=== PATIENT | female | born 1950 | race Caucasian/White ===

== ENCOUNTER 2016-11-05 21:42 | Inpatient (IN) | payer OTHER ==
--- NOTE | ~2016-11-05 | PA ---
Unit #: [id number] #: [id number] Patient: LYNN MARCOS [id number] [facility] [address] [place] [address] [id number] I MR#: [id number] NAME: LYNN MARCOS ROOM: P171 Age: 66 Sex: F Admission Date: 11/05/2016 : 1950 Date of Assessment: 11/06/2016 Attending Physician: Dipak Pickett M.D. Admitting Physician: Dipak Pickett M.D. Primary Care Physician: Generic Doctor Not In System PSYCHIATRIC ASSESSMENT DATE OF SERVICE 11/06/2016. IDENTIFYING DATA Ms. Marcos is a 66-year-old, , white female, who is a resident of [place], [place], and was self-referred to the hospital. CHIEF COMPLAINT "I have been having panic attacks for the past few weeks." HISTORY OF PRESENT ILLNESS Ms. Marcos is a 66-year-old white female, who was self-referred to the hospital. Upon presentation, she stated that she has been having panic attacks for the past few weeks and she does not know what causes it, but is scared so to the point that she has thought about harming herself to make it stop and stated that she has had thoughts about taking pills or turning on her gas to kill herself to make it all stop. Her friend stated that the patient has been suffering from these feelings for a while and she lives alone and she is concerned about her safety. The patient was seen to be a danger to self and as such, a recommendation for inpatient level of care was made. SUBSTANCE ABUSE HISTORY The patient denies any alcohol or drug abuse. PAST PSYCHIATRIC HISTORY The patient has had a history of multiple inpatient psychiatric hospitalizations as she has been to [facility], [facility], at [facility], and [facility] and other facilities and has had outpatient treatment with long history of mental illness, and review of the medical records indicate that currently she is seeing a psychiatrist, but is not taking any psychotropic medications. PAST MEDICAL HISTORY The patient's medical history is significant for hypertension. ALLERGIES Wellbutrin. PERSONAL AND SOCIAL HISTORY A 66-year-old white female, who reports that she is single, unemployed, , and lives alone and has poor social support system. Unit #: [id number] #: [id number] Patient: LYNN MARCOS MENTAL STATUS EXAMINATION An elderly white female, who was casually dressed with fair personal hygiene, appears to be in no acute distress or discomfort. She was awake and alert on interaction with intact orientation to time, place, and person. Her mood was anxious and depressed with a congruent affect. Her speech was slow and goal directed. She reports having suicidal ideations, but denies any homicidal ideations and also denies any auditory or visual hallucinations. Her insight and judgment remain significantly impaired. DIAGNOSTIC IMPRESSION Psychiatric: Major depressive disorder, recurrent, moderate, without psychotic features and generalized anxiety disorder. Medical: Hypertension. Stressors: Moderate psychosocial stressors. TREATMENT PLAN 1. The patient has presented with a history of mood disorder and substance abuse and has been decompensating and will need inpatient hospitalization for safety and stabilization. We will start her back on her home medications and we will adjust the medications and monitor response. 2. Supportive therapy was provided to the patient. 3. Safe, structured, and nourishing environment will be provided. ESTIMATED LENGTH OF STAY 4 to 5 days. ABILITY TO HELP SELF Limited. WILLINGNESS TO HELP SELF The patient appears to be willing to help self. STRENGTHS 1. Communicative. 2. Cooperative. PROBLEMS 1. Chronic dysphoric symptoms. 2. Poor social support system. DISCHARGE CRITERIA This will be contingent upon the patient's ability to show resolution of her depression and anxiety as well as her ability to stay safe to herself, particularly after discharge from the hospital. Dictated by... Karis Ford/sean TD: 11/06/2016 14:55 JOB #: [id number] Unit #: [id number] #: [id number] Patient: LYNN MARCOS PSYCHIATRIC ASSESSMENT X Dipak Pickett MD PSYCHIATRIC ASSESSMENT
--- NOTE | ~2016-11-05 | PN ---
Unit #: [id number] #: [id number] Patient: LYNN MARCOS [id number] [facility] [address] [place] [address] [id number] MR#: [id number] NAME: LYNN MARCOS. ROOM: P171 Age: 66 Sex: F Admission Date: 11/05/2016 : 1950 Attending Physician: Dipak Pickett M.D. Admitting Physician: Dipak Pickett M.D. Primary Care Physician: Generic Doctor Not In System [facility] PROGRESS NOTES DATE OF SERVICE 11/09/2016 DISCUSSION Ms. Marcos is a 66-year-old white female who was seen today. Chart was reviewed and case was discussed with the staff. She has been anxious, withdrawn, was sitting on her bed in a bra and was seen to be somewhat disorganized and unable to carry on much conversation, and exhibiting some cognitive impairment. Meanwhile, reports not feeling good and has been complaining of anxiety and depressive symptoms. MENTAL STATUS EXAMINATION An elderly white female who is casually dressed with fair personal hygiene, appears to be in no acute distress or discomfort. The patient was awake and alert with impaired attention and concentration. Her mood is anxious with congruent affect. Her speech is slow and restricted in content. Her thought processes were disorganized with some looseness of associations. Her insight and judgment remain significantly impaired. TREATMENT PLAN 1. We will continue her on her current medications and treatment protocol. We will monitor her response and make further adjustments as needed. 2. We will continue to follow up. Dictated by... Karis Ford/greg TD: 11/09/2016 12:48 JOB #: [id number] Unit #: [id number] #: [id number] Patient: LYNN MARCOS [facility] PROGRESS NOTES X Dipak Pickett MD PROGRESS NOTE
--- NOTE | ~2016-11-05 | PN ---
Unit #: [id number] #: [id number] Patient: LYNN MARCOS [id number] [facility] [address] [place] [address] [id number] I MR#: [id number] NAME: LYNN MARCOS ROOM: P171 Age: 66 Sex: F Admission Date: 11/05/2016 : 1950 Attending Physician: Dipak Pickett M.D. Admitting Physician: Dipak Pickett M.D. Primary Care Physician: Generic Doctor Not In System [facility] PROGRESS NOTES DATE OF SERVICE: 11/13/2016 SUBJECTIVE Ms. Marcos is a 66-year-old white female, who was seen today and chart was reviewed, and case was discussed with the staff. She has been anxious, withdrawn, rather seclusive to herself and has been exhibiting some depressive symptoms. Meanwhile, she has been taking the medications and tolerating them fairly well with no reported side effects. MENTAL STATUS EXAMINATION An elderly white female, who was casually dressed with fair personal hygiene, appears to be in no acute distress or discomfort. She was awake and alert on interaction with intact orientation. Her mood was anxious and depressed with a congruent affect. She denies any suicidal or homicidal ideations. Her insight and judgment remain slightly impaired. TREATMENT PLAN 1. We will continue her on her current treatment protocol. We will monitor her response to the medications and make further adjustments as needed. 2. We will continue to follow up. Dictated by... Karis Ford/sean TD: 11/14/2016 06:22 JOB #: [id number] [employer] PROGRESS NOTES X Dipak Pickett MD PROGRESS NOTE
--- NOTE | ~2016-11-05 | HP ---
Unit #: [id number] #: [id number] Patient: LYNN MARCOS [id number] [place] [address] [id number] I MR#: [id number] NAME: LYNN MARCOS. ROOM: P171 Age: 66 Sex: F Admission Date: 11/05/2016 : 1950 Attending Physician: Dipak Pickett M.D. Admitting Physician: Dipak Pickett M.D. Primary Care Physician: Generic Doctor Not In System HISTORY AND PHYSICAL HISTORY OF PRESENT ILLNESS The patient is a 66-year-old female admitted to [facility] on 11/05/2016 for suicidal ideation. PAST MEDICAL HISTORY 1. Hypertension. 2. Nicotine dependence. PAST SURGICAL HISTORY 1. Cardiac catheterization. 2. Hernia. 3. Colon surgery. SOCIAL HISTORY The patient is retired. She lives alone. She smokes one pack of cigarettes daily. Denies alcohol and drug use. FAMILY HISTORY Noncontributory. ALLERGIES Wellbutrin. CURRENT MEDICATIONS 1. Atenolol. 2. Ibuprofen. 3. Benadryl. 4. Eyedrops. 5. Aspirin. 6. Tylenol. REVIEW OF SYSTEMS CONSTITUTIONAL: No fever or chills. HEENT: Denies any sore throat, ear pain or runny nose. CARDIOVASCULAR: Denies chest pain, irregular heart rhythm or palpitations. CHEST: Denies shortness of breath or cough. No hemoptysis. GASTROINTESTINAL: Denies nausea, vomiting, diarrhea or chronic constipation. ENDOCRINE: Denies history of increased thirst or urination. No recent significant weight loss or gain. GENITOURINARY: Denies dysuria, frequency, or hematuria. SKIN: Denies any rashes. HEMATOLOGIC: Denies history of increased bleeding or bruising. Unit #: [id number] #: [id number] Patient: LYNN MARCOS MUSCULOSKELETAL: Denies any hot, swollen joints. No generalized muscle pain. NEUROLOGIC: Denies problems with vision or speech. No frequent, severe headaches. No numbness, tingling or weakness in any extremities. Denies loss of bladder or bowel control. PHYSICAL EXAMINATION GENERAL: Awake, alert and oriented, in no acute distress. VITAL SIGNS: Temperature 98.2, heart rate 74, respiratory rate 18, blood pressure 130/69, height 5'3". WEIGHT: 125 pounds. SKIN: Warm and dry without rash or lesion. HEENT: Normocephalic. TMs not viewed. Oral and nasal passages clear. Conjunctivae clear. PERRLA. EOMs intact. NECK: Supple without lymphadenopathy or thyromegaly. HEART: Regular rate and rhythm without murmur. LUNGS: Clear. ABDOMEN: Soft, nontender. : Not done. EXTREMITIES: No evidence of cyanosis, clubbing or edema. Moves all without focal deficit. NEUROLOGICAL: Grossly within normal limits. Cranial Nerves: II: Visual smith are intact. III, IV AND : Extraocular movements are intact. Pupils are equal, round and reactive to light. V: Facial sensation is grossly normal. VII: Facial movements and expression are normal. VIII: Auditory acuity grossly intact. IX, X: Uvula is midline. Phonation is normal. XI: Patient shrugs shoulders and turns head normally. XII: Tongue protrudes in the midline. Sensory and Motor Function: Sensory and motor sensation is grossly normal. Motor: moves all extremities well. ASSESSMENT 1. Psychiatric admission. 2. Hypertension. 3. Nicotine dependence. RECOMMENDATION Psychiatric: Per psychiatrist. Medical: No contraindications for participating in facility activities. MEDICAL PROGNOSIS Good. MEDICATION CONDITION Stable. Dictated by... Karoline Kaur/elida TD: 11/07/2016 08:07 JOB #: [id number] Unit #: [id number] #: [id number] Patient: LYNN MARCOS HISTORY AND PHYSICAL X JONATHAN RAYO APRN HISTORY AND PHYSICAL
--- NOTE | ~2016-11-05 | PN ---
Unit #: [id number] #: [id number] Patient: LYNN MARCOS [id number] [facility] [address] [place] [address] [id number] I MR#: [id number] NAME: LYNN MARCOS. ROOM: P171 Age: 66 Sex: F Admission Date: 11/05/2016 : 1950 Attending Physician: Dipak Pickett M.D. Admitting Physician: Dipak Pickett M.D. Primary Care Physician: Generic Doctor Not In System [facility] PROGRESS NOTES DATE 11/12/2016 DISCUSSION Ms. Marcos is a 66-year-old white female who was seen today and chart was reviewed and case was discussed with the staff. She remains anxious, withdrawn and rather seclusive to herself. Meanwhile, she has been cooperative with treatment recommendations as she has been taking the medications and tolerating them fairly well with no reported side effects. MENTAL STATUS EXAMINATION An elderly white female who was casually dressed with fair personal hygiene, appears to be in no acute distress or discomfort. She was awake and alert on interaction with intact orientation. Her mood was anxious and depressed with congruent affect. She denies any suicidal or homicidal ideations. Her insight and judgement remains slightly impaired. TREATMENT PLAN 1. We will continue her on her current medications and treatment protocol. We will monitor her response to the medications and make further adjustments as needed. 2. We will continue to follow up. Dictated by... Karis Ford/hilda TD: 11/14/2016 00:53 JOB #: [id number] Unit #: [id number] #: [id number] Patient: LYNN MARCOS [facility] PROGRESS NOTES X Dipak Pickett MD PROGRESS NOTE
--- NOTE | ~2016-11-05 | PN ---
Unit #: [id number] #: [id number] Patient: LYNN MARCOS [id number] [facility] [address] [place] [address] [id number] I MR#: [id number] NAME: LYNN MARCOS ROOM: P171 Age: 66 Sex: F Admission Date: 11/05/2016 : 1950 Attending Physician: Dipak Pickett M.D. Admitting Physician: Dipak Pickett M.D. Primary Care Physician: Generic Doctor Not In System [facility] PROGRESS NOTES DATE OF SERVICE: 11/07/2016 SUBJECTIVE Ms. Marcos is a 66-year-old white female who was seen today and chart was reviewed, and case was discussed with the staff. She has been anxious, withdrawn, depressed, and rather seclusive to herself. Meanwhile, she has been cooperative with treatment recommendations and has been taking the medications and tolerating them fairly well. MENTAL STATUS EXAMINATION An elderly white female who was casually dressed with fair personal hygiene, appears to be in no acute distress or discomfort. She was awake and alert on interaction with intact orientation. Her mood was anxious and depressed with a congruent affect. She denies any suicidal or homicidal ideations. Her insight and judgment remain slightly impaired. TREATMENT PLAN 1. We will continue her on her current medications and treatment protocol. We will monitor her response to medications and make further adjustments as needed. 2. We will continue to follow up. Dictated by... Karis Ford/sean TD: 11/09/2016 06:26 JOB #: [id number] [facility] PROGRESS NOTES X Dipak Pickett MD PROGRESS NOTE
--- NOTE | ~2016-11-05 | PN ---
Unit #: [id number] #: [id number] Patient: LYNN MARCOS [id number] [facility] [address] [place] [address] [id number] MR#: [id number] NAME: LYNN MARCOS. ROOM: P171 Age: 66 Sex: F Admission Date: 11/05/2016 : 1950 Attending Physician: Dipak Pickett M.D. Admitting Physician: Dipak Pickett M.D. Primary Care Physician: Generic Doctor Not In System [facility] PROGRESS NOTES DATE OF SERVICE 11/08/2016 DISCUSSION Ms. Marcos is a 66-year-old white female who was seen today. Chart was reviewed and case was discussed with the staff. She has been anxious, withdrawn, and seclusive to herself and reports persistent depressive symptoms with feelings of hopelessness and helplessness. Meanwhile, she has been compliant with the treatment recommendations and has been taking the medications and tolerating them fairly well with no reported side effects. MENTAL STATUS EXAMINATION An elderly white female who is casually dressed with fair personal hygiene, appears to be in no acute distress or discomfort. She was awake and alert with impaired attention and concentration. Her mood is anxious with congruent affect. She denies any suicidal or homicidal ideations. Her insight and judgment remain slightly impaired. TREATMENT PLAN We will continue her on her current medications and treatment protocol. We will monitor her response to medications and make further adjustments as needed. Dictated by... Dipak Pickett M.D. IAA/bzg TD: 11/09/2016 12:32 JOB #: [id number] Unit #: [id number] #: [id number] Patient: LYNN MARCOS [facility] PROGRESS NOTES X Dipak Pickett MD PROGRESS NOTE
--- NOTE | ~2016-11-05 | PN ---
Unit #: [id number] #: [id number] Patient: LYNN MARCOS [id number] [facility] [address] [place] [address] [id number] MR#: [id number] NAME: LYNN MARCOS. ROOM: P252 Age: 66 Sex: F Admission Date: 11/05/2016 : 1950 Attending Physician: Dipak Pickett M.D. Admitting Physician: Dipak Pickett M.D. Primary Care Physician: Generic Doctor Not In System [facility] PROGRESS NOTES DATE 11/11/2016 DISCUSSION Ms. Marcos is a 66-year-old white female who was seen today and chart was reviewed and case was discussed with the staff. She has been anxious, withdrawn though has not shown any agitation, irritability and has been cooperative with treatment recommendations and has been taking medications and tolerating them fairly well with no reported side effects. MENTAL STATUS EXAMINATION Young female who was casually dressed with fair personal hygiene and appears to be in no acute distress or discomfort. She was awake and alert with impaired attention and concentration. Her mood was anxious and depressed with congruent affect. She denies any suicidal or homicidal ideations. Her insight and judgement remains slightly impaired. TREATMENT PLAN 1. Will continue on current medications and treatment protocol. Will monitor her response to the medications and make further adjustments as needed. 2. Will continue to follow up. Dictated by... Dipak Pickett M.D. IAA/kaylene TD: 11/12/2016 13:56 JOB #: [id number] Unit #: [id number] #: [id number] Patient: LYNN MARCOS [facility] PROGRESS NOTES X Dipak Pickett MD PROGRESS NOTE
--- NOTE | ~2016-11-05 | DS ---
Unit #: [id number] #: [id number] [facility] [id number] [facility] [address] [place] [address] [id number] I MR#: [id number] NAME: LYNN MARCOS. ROOM: P171 Age: 66 Sex: F Admission Date: 11/05/2016 : 1950 Discharge Date: Attending Physician: Dipak Pickett M.D. Primary Care Physician: Generic Doctor Not In System DISCHARGE SUMMARY IDENTIFYING DATA Ms. Marcos is a 66-year-old white female, who is a resident of [place], [place] and was self-referred to the hospital. DISCHARGE DIAGNOSES Psychiatric: Major depressive disorder, recurrent, moderate, without psychotic features; generalized anxiety disorder. Medical: Hypertension. Stressors: Moderate psychosocial stressors. HISTORY OF PRESENT ILLNESS Please see initial psychiatric evaluation for details. PAST PSYCHIATRIC HISTORY Please see initial psychiatric evaluation for details. PAST MEDICAL HISTORY Please see initial psychiatric evaluation for details. HOSPITAL COURSE The patient was admitted to the adult psychiatric unit at [facility] and was oriented to the hospital environment. Routine p.r.n. medications were initiated, and she was started on a combination of Paxil and Vistaril to help with depression and anxiety and was closely monitored. She has a rather complicated course with persistent depression and anxiety that were not responding to medications, and as such, medications were maintained and she was encouraged to participate in therapy groups and she slowly started showing a therapeutic response to the medications. Followed by which, it was decided that she will be discharged home and will continue treatment on an outpatient basis. DISCHARGE MEDICATIONS Paxil 20 mg at bedtime for depression, Vistaril 25 mg t.i.d. for anxiety. DISCHARGE CONDITION Stable. PROGNOSIS Fair. Dictated by... Dipak Pickett M.D. Unit #: [id number] #: [id number] Patient: LYNN MARCOS IAA/modl TD: 11/14/2016 06:33 JOB #: [id number] DISCHARGE SUMMARY X Dipak Pickett MD X DISCHARGE SUMMARY
--- NOTE | ~2016-11-05 | PN ---
Unit #: [id number] #: [id number] Patient: LYNN MARCOS [id number] [facility] [address] [place] [address] [id number] I MR#: [id number] NAME: LYNN MARCOS. ROOM: P252 Age: 66 Sex: F Admission Date: 11/05/2016 : 1950 Attending Physician: Dipak Pickett M.D. Admitting Physician: Dipak Pickett M.D. Primary Care Physician: Generic Doctor Not In System [facility] PROGRESS NOTES DATE November 10, 2016 DISCUSSION Ms. Marcos is a 66-year-old white female, with mood disorder, who was seen today and chart was reviewed and the case was discussed with the staff. She has been anxious, withdrawn, depressed, and rather seclusive to herself. Meanwhile, she has been cooperative and compliant with the treatment recommendations and she has been taking the medications and tolerating them fairly well. MENTAL STATUS EXAMINATION An elderly white female, who was casually dressed with fair personal hygiene and appears to be in no acute distress or discomfort. The patient was awake and alert with impaired attention and concentration. Her mood was anxious with a congruent affect. The patient denies any suicidal or homicidal ideations. Her insight and judgment remain slightly impaired. TREATMENT PLAN 1. We will continue her on her current medications and treatment protocol, and will monitor her response to the medications, and make further adjustments as needed. 2. We will continue to followup. Dictated by... Karis Ford/linda TD: 11/11/2016 10:09 JOB #: [id number] Unit #: [id number] #: [id number] Patient: LYNN MARCOS [facility] PROGRESS NOTES X Dipak Pickett MD PROGRESS NOTE
[~2016-11-05 21:42] MED LIST: ACETAMINOPHEN PO; APRESOLINE PO; ASPIRIN EC81 M1 PO; ASPIRIN PO; ASPIRIN81 M2 PO; ATENOLOL PO; ATENOLOL50 MG PO; BENADRYL25 M3 PO; EFFEXOR PO; HYDROXYZINE HCL10 MG PO; LOTRISONE CREAM45 GM TOP; PAXIL PO; PREDNISONE PO; PROZAC10 MG PO; TENORMIN25 M1 PO; WELLBUTRIN PO; WELLBUTRIN SR150 M1 PO; WELLBUTRIN SR150 MG PO
[2016-11-06 12:29] LABS: URINE APPEARANCE CLOUDY; URINE BILIRUBIN NEG (NEG); URINE BLOOD NEG (NEG); URINE COLOR YELLOW; URINE GLUCOSE NEG (NEG); URINE KETONE NEG (NEG); URINE LEUKOCYTE ESTERASE 3+ (NEG); URINE NITRATE NEG (NEG); URINE PH 5.5 (5-8); URINE PROTEIN NEG (NEG); URINE SPECIFIC GRAVITY 1.012 (1.003-1.035); URINE UROBILINOGEN 0.2 MG/DL (NEG)
[2016-11-06 12:33] LABS: URBCS1 AUWI 0-2 /[HPF] (0-2); URINE BACTERIA AUWI 2+ (NEGATIVE); URINE SQUAMOUS EPITHELIAL CELL FEW /[HPF]; UWBCS1 AUWI 25-50 (0-5)
[2016-11-06 12:59] LABS: AMPHETAMINE NEG (NEG); BARBITURATES NEG (NEG); BENZODIAZEPINES NEG (NEG); COCAINE NEG (NEG); MARIJUANA NEG (NEG); OPIATES NEG (NEG); TRICYCLIC ANTIDEPRESSANTS NEG (NEG); U METHADONE NEG (NEG)
[2016-11-07 12:34] LABS: BASOPHIL% 0.5 % (0-2.5); EOSINOPHIL# 0.2 X10e3 (0-0.7); EOSINOPHIL% 2.2 % (0.0-7.0); HEMATOCRIT 39.3 % (35.0-45.0); HEMOGLOBIN 13.1 gm/dL (12.0-16.0); LYMPHOCYTE# 2.2 X10e3 (1.0-3.5); LYMPHOCYTE% 23.2 % (17.0-45.0); MEAN CELL VOLUME 86.6 FL (83-96); MEAN CORPUSCULAR HEMOGLOBIN 28.9 PG (28-34); MEAN CORPUSCULAR HGB CONC 33.4 g/dL (30-36); MEAN PLATELET VOLUME 8.6 FL (6.5-11.5); MONOCYTE# 0.5 X10e3 (0-1.0); MONOCYTE% 5.2 % (3.0-12.0); NEUTROPHIL# 6.6 X10e3 (1.5-7.1); NEUTROPHIL% 68.9 % (40-75); PLATELET COUNT 235 X10e3 (140-420); RED BLOOD COUNT 4.54 X10e (3.90-5.30); RED CELL DISTRIBUTION WIDTH 12.3 % (11.0-15.5); WHITE BLOOD COUNT 9.6 X10e3 (4.0-10.5)
[2016-11-07 12:39] LABS: DIFF IND NO
[2016-11-07 13:00] LABS: THYROID STIMULATING HORMONE 0.74 uIU/ml (0.34-5.60)
[2016-11-07 13:07] LABS: FREE THYROXIN (T4) 1.16 ng/dL (0.58-1.64)
[2016-11-07 13:16] LABS: ALBUMIN SERUM 3.8 g/dL (3.5-5.0); ALKALINE PHOSPHATASE 62 U/L (32-92); ALT (SGPT) 10 U/L (10-40); AST (SGOT) 13 U/L (10-42); BILIRUBIN,TOTAL 0.4 mg/dL (0.2-2.0); BLOOD UREA NITROGEN 16 mg/dL (9-23); BUN/CREATININE RATIO 17.77; CALCIUM SERUM 8.8 mg/dL (8.4-10.2); CARBON DIOXIDE 25 mmol/L (22-31); CHLORIDE 102 mmol/L (100-111); CREATININE SERUM 0.9 mg/dL (0.6-1.4); GLOM FILT RATE Estimated ABOVE60 mL/min (>60); GLUCOSE FASTING 85 mg/dL (70-110); POTASSIUM 4.8 mmol/L (3.5-5.1); PROTEIN TOTAL SERUM 6.3 g/dL (6.0-8.3); SODIUM 131 mmol/L (135-145)
== END 2016-11-14 10:16 | disposition home or self-care (01) | DRG 885 ==
LOC: P1E 21:42 → P2L 11-10 18:46 → P1E 11-12 15:46
PROVIDERS: Psychiatry & Neurology Psychiatry
DX: F33.1 Major depressive disorder, recurrent, moderate (principal); I10 Essential (primary) hypertension; F41.1 Generalized anxiety disorder; F17.200 Nicotine dependence, unspecified, uncomplicated; Z56.0 Unemployment, unspecified
CPT/HCPCS: 80053; 80307; 81003; 84439; 84443; 85025